=== PATIENT | male | born 1995 | race Caucasian/White ===

== ENCOUNTER 2018-05-27 17:42 | Emergency (ER) | payer SELFPAY ==
[~2018-05-27] VITALS: Wt 56.7 kg
[2018-05-27 17:44] VITALS: BP 124/68; PULSE 71; RESP 19
[2018-05-27] MEDS ORDERED: IBUP-1542 PO (18:49)
--- NOTE | 2018-05-27 18:58 | ERD ---
ER Documentation Chief Complaint Chief Complaint bib self, cc: cwp for 3 days, cc: anxiety s/p arguments at home HPI 23-year-old male complaining of chest pain times 5 days. States the pain comes and goes, and which occurs randomly, and sharp in nature. Pain lasting about 1 minute each. Patient reports one episode of chest pain 2 minutes ago, but denies pain at this time. Pain is sometimes located in the left axilla, sometimes in the left anterior chest. Patient also reports intermittent headache for the last 2 days. States the headache is located in the one-point at the occipital region, and sharp in nature. He took Benadryl last night, but had not taken any ibuprofen for pain. Patient reports drinking 1-2 cups of water daily. He also has history of anxiety, and states that anxiety can get really bad at times. Denies fever or chills. Denies shortness of breath. Denies recent head injury. Denies vision changes or photophobia. Denies one- sided weakness or numbness. Denies any past medical history. ROS All systems reviewed and are negative except as per history of present illness. Medications Home Meds Active Scripts Ibuprofen* (Motrin*) 600 Mg Tab, 600 MG PO Q6H PRN for PAIN AND OR ELEVATED TEMP, #30 TAB Prov:CAILIN OLIVEROS NP 05/27/18 Allergies Allergies: Coded Allergies: No Known Allergy (Unverified , 05/27/18) PMhx/Soc History of Surgery: No Anesthesia Reaction: No Hx Neurological Disorder: No Hx Respiratory Disorders: No Hx Cardiac Disorders: No Hx Psychiatric Problems: No Hx Miscellaneous Medical Probl: No Hx Alcohol Use: No Hx Substance Use: No Hx Tobacco Use: No Physical Exam Vitals Vital Signs Date Temp Pulse Resp B/P (MAP) Pulse Ox O2 O2 Flow FiO2 Time Delivery Rate 05/27/18 98.1 71 19 124/68 100 17:44 (86) Physical Exam General: Well-developed, well-nourished, conscious and coherent, in no distress Skin: Warm and dry without rash, good texture and turgor Head: Normocephalic without evidence of trauma, nontender Eyes: Sclera and conjunctivae normal; pupils equal, round, and reactive to light; extraocular movements are intact Neck: Supple without meningismus or adenopathy. Carotids are equal. Trachea midline. No bruits or JVD Chest: Normal AP diameter. Good expansion without retractions. Reproducible left chest wall tenderness. Lungs are clear to auscultate bilaterally with good tidal volume Heart: Regular rate and rhythm. No murmur, rub, or gallops heard Abdomen: Soft and nontender without masses, guarding, or rebound. Bowel sounds are active. No hepatosplenomegaly Extremities: Full range of motion. Good strength bilaterally. No erythema, ecchymosis, or edema. Peripheral pulses are intact. Sensation intact Neuro: Alert and oriented 4; GCS 15. Cranial nerves II - XII intact. Motor sensory exam nonfocal. Moves all extremities. Deep tendon reflexes 2+ in all extremities. Speech clear. No pronator drift. Gait steady. Procedures/MDM Well-appearing 23-year-old male with history of anxiety presented to ED for chest pain and headache. EKG: Normal sinus rhythm, rate 72 bpm, normal intervals, normal axis. No ST segment elevation or depression. No ectopic beats. No QT prolongation. No sign of acute ischemia. EKG read by Dr. Hinton. Based on patient's history, his chest pain does not appear to be cardiac in nature. Low suspicion for acute coronary syndrome, aortic dissection, pneumonia, pneumothorax, or PE. Patient has reproducible chest wall tenderness to palpation. Likely patient chest pain was from costochondritis. Patient also reports intermittent headache. I doubt head injury, pseudotumor cerebri, meningitis, encephalitis, giant cell arteritis, glaucoma, subarachnoid hemorrhage, subdural or epidural hematoma, intracranial bleeding or tumor. Likely his headache is tension headache, exacerbated by dehydration. Patient appears well, stable for discharge and outpatient management. Medical decision making shared with patient and family. Education provided to patient and family. Patient and family expressed understanding of the plan. Medications on discharge: Ibuprofen. Follow-up: Primary care provider in 2-3 days or return to ED if worse. Disclaimer: Inadvertent spelling and grammatical errors are likely due to EHR/dictation software use and do not reflect on the overall quality of patient care. Also, please note that the electronic time recorded on this note does not necessarily reflect the actual time of the patient encounter. Departure Diagnosis: Primary Impression: Chest wall pain Additional Impressions: Anxiety Headache Headache type: tension-type Headache chronicity pattern: acute headache Intractability: not intractable Qualified Codes: G44.209 - Tension-type headache, unspecified, not intractable Condition: Stable Patient Instructions: Your Body's Response to Anxiety, Self-Care for Headaches, Chest Wall Pain, Costochondritis Additional Instructions: Call your primary care doctor TOMORROW for an appointment during the next 2-3 days.See the doctor sooner or return here if your condition worsens before your appointment time. CAILIN OLIVEROS NP May 27, 2018 18:58
== END 2018-05-27 19:17 | disposition home or self-care (01) ==
LOC: FTE 17:42
DX: R07.89 Other chest pain (principal); F41.9 Anxiety disorder, unspecified; G44.209 Tension-type headache, unspecified, not intractable; R40.2412 Glasgow coma scale score 13-15, at arrival to emergency department
CPT/HCPCS: 93005